=== PATIENT | male | born 2000 | race Caucasian/White ===

== ENCOUNTER → 2022-03-30 13:47 | Outpatient (BNVA) | payer OTHER, SELFPAY | PROVIDERS: PCP Pediatrics; Visit Provider Psychiatry & Neurology Neurology | DX: G80.9 Cerebral palsy, unspecified (principal) ==

== ENCOUNTER 2023-06-14 15:28 | Outpatient (AMB) | payer OTHER, MEDICAID, SELFPAY ==
--- NOTE | 2023-06-14 15:30 | MHC.OFFVIS ---
Intake Vital Signs 06/14/23 15:33 Height 4 ft 8 in Weight 97 lb BMI 21.7 Intake Visit Reasons: follow up Intake Note: Patient presents for follow up. Patient states no concerns today. Allergies Anesthetics - Haily Type- Parabens Allergy (Mild, Verified 06/14/23 15:33) Unknown Penicillins Allergy (Mild, Verified 06/14/23 15:33) Unknown HPI HPI Comments History of Present Illness Details 21 y/o male with cerebral palsy, gait disorder, chronic respiratory failure on vent comes for follow up. He is accompanied by his grandmother who is his primary dock superintendent. Pt is nonverbal. He has private yoga sessions at home and is doing well, no falls reported. He walks fine, mildly off balance. Pt has tube feeding and using vent nightly. [facility] Medical History ARDS (adult respiratory distress syndrome) Cerebral palsy Chronic respiratory failure Malignant hyperthermia Scoliosis Family History Mother Behavior disturbance Father FH: cholecystectomy Social History Alcohol intake: never Patient Tobacco Use Status: Never used Tobacco Review of Systems Const All systems reviewed & are unremarkable except as noted in HPI and below Physical Exam Vital Signs: BMI result Body Mass Index 21.7 Const General: cooperative Nutritional Appearance: average body habitus Neuro Other: Increased tone Power 5/5 No abnormal movements FFM and foot taps decreased Gait- mild off balance, externally rotated feet , mild waddling gait antecollis Assessment & Plan Assessment & Plan (1) Cerebral palsy: Code(s): G80.9 - Cerebral palsy, unspecified (2) Gait disorder: Code(s): R26.9 - Unspecified abnormalities of gait and mobility Plan Advised patient to continue do yoga. F/u with PCP as needed. Coding Level of Care Code Est Pt Level 3 (30394) Diagnoses Cerebral palsy G80.9 Gait disorder R26.9
[2023-06-14 15:33] VITALS: BMI 21.7
== END 2023-06-14 15:53 | disposition home or self-care (01) ==
PROVIDERS: PCP Pediatrics; Visit Provider Nurse Practitioner Family
DX: G80.9 Cerebral palsy, unspecified (principal); R26.9 Unspecified abnormalities of gait and mobility
CPT/HCPCS: 99213

== ENCOUNTER → 2023-06-14 15:28 | Outpatient (BNVA) | payer OTHER, MEDICAID, SELFPAY | PROVIDERS: PCP Pediatrics; Visit Provider Nurse Practitioner Family ==